=== PATIENT | male | born 1930 | race Caucasian/White ===

== ENCOUNTER 2020-05-03 16:40 | Inpatient (IN) | payer MEDICARE ==
[~2020-05-03] VITALS: Ht 177.8 cm; Wt 76.5 kg
[~2020-05-03 16:40] MED LIST: AMOX1TAB64 PO; ERYT30GE2 EACHEYE; FINA5TAB4 PO; FLUC200T PO; HYDR-3237 PO; LATA2.5D4 EACHEYE; LISI-167 PO; METH4TAB2 PO; PANT40TA6 PO; PRAV40TA2 PO; TERA2CAP3 PO
--- NOTE | 2020-05-03 16:58 | NUR ---
PT LISHA. TRANSFER FROM [facility]. PER EMS PT WOKE UP AND WAS DIZZY SO HE PRESENTED TO [facility]. [facility] SAW 3RD DEGREE HEART BLOCK AND TRANSFERRED HIM TO [facility]. PER EMS PT GOT NO MEDICATIONS EN ROUTE AND ONLY SYMPTOM IS DIZZINESS. PT STATES HE IS NO LONGER DIZZY. CODE CART IN ROOM, PT ON PADS. EKG DONE. ALBERTO RAMIREZ AT BS. MONITORING IN PLACE, NADN AT THIS TIME. PT'S HR CURRENTLY 41BPM AND BP 152/53. WCTM. BILAT IV ACCESS IN FOREARMS 20G.
[2020-05-03] MEDS ORDERED: SODIUM CHLORIDE FLUSH 10ML SYR IVF ONE (17:00)
--- NOTE | 2020-05-03 17:18 | NUR ---
PT'S CALLED PER PT'S REQUEST. MIRIAM, PT'S , UPDATED ON POC. PHONE NUMBER [phone].
[2020-05-03 17:39] LABS: BASOPHILS % (AUTO) 0 % (0-1); EOSINOPHILS % (AUTO) 1 % (1-7); LYMPHOCYTES % (AUTO) 24 % (22-44); MEAN CORPUSCULAR HEMOGLOBIN 31.7 pg (27.5-34.5); MEAN CORPUSCULAR HGB CONC 33.8 g/dL (33.2-36.2); MEAN PLATELET VOLUME 7.6 fL (7.4-10.4); MONOCYTES % (AUTO) 9 % (2-9); NEUTROPHILS % (AUTO) 66 % (42-75); PLATELET COUNT 207 x10^3/uL (130-400); RED CELL DISTRIBUTION WIDTH 13.2 % (9.4-14.8)
[2020-05-03 17:43] LABS: ALANINE AMINOTRANSFERASE 23 U/L (12-78); ALBUMIN 3.5 g/dL (3.4-5.0); ANION GAP 4 mmol/L (5-15); CALCIUM 8.1 mg/dL (8.5-10.1); CHLORIDE 106 mmol/L (98-107); CREATININE 1.12 mg/dL (0.7-1.3)
[2020-05-03 17:47] LABS: ALKALINE PHOSPHATASE 64 U/L (45-117); BILIRUBIN,TOTAL 0.4 mg/dL (0.2-1.0); TOTAL PROTEIN 6.7 g/dL (6.4-8.2); TROPONIN I 0.019 ng/mL (0.000-0.045)
[2020-05-03 17:48] LABS: MD NO
[2020-05-03] MEDS ORDERED: ATOR20TA37 PO (17:49)
[2020-05-03] MEDS ORDERED: CARB1TAB22 PO (17:49)
[2020-05-03] MEDS ORDERED: TAMS-11 PO (17:49)
[2020-05-03 18:41] LABS: INTERNATIONAL NORMALIZED RATIO 1.13 (0.93-1.1)
[2020-05-03] MEDS ORDERED: ONDANSETRON 2MG/ML, 2ML IVPush PRN (19:00)
[2020-05-03] MEDS ORDERED: ENALAPRILAT 1.25 MG/ML, 2ML IVPush PRN (19:00)
[2020-05-03] MEDS ORDERED: ACETAMINOPHEN 325 MG TABLET PO PRN (19:00)
--- NOTE | 2020-05-03 20:05 | NUR ---
Dinner tray provided. Pt tolerating well. Pt stood at bedside and used urinal, tolerated well. Pt denies lighthead or dizziness. Remains in a 3degree heart block, umair PWD. A&O.
[2020-05-03] MEDS ORDERED: [UNRECOGNIZED DRUG - REMARK] XX ONE (20:30)
[2020-05-04 04:49] LABS: BASOPHILS % (AUTO) 0 % (0-1); EOSINOPHILS % (AUTO) 2 % (1-7); LYMPHOCYTES % (AUTO) 31 % (22-44); MEAN CORPUSCULAR HEMOGLOBIN 31.6 pg (27.5-34.5); MEAN CORPUSCULAR HGB CONC 33.8 g/dL (33.2-36.2); MEAN PLATELET VOLUME 7.8 fL (7.4-10.4); MONOCYTES % (AUTO) 10 % (2-9); NEUTROPHILS % (AUTO) 57 % (42-75); PLATELET COUNT 202 x10^3/uL (130-400); RED BLOOD COUNT 4.14 x10^6/uL (4.38-5.82); RED CELL DISTRIBUTION WIDTH 13.2 % (9.4-14.8)
[2020-05-04 04:53] LABS: MD NO
[2020-05-04 04:59] LABS: ANION GAP 5 mmol/L (5-15); CALCIUM 8.4 mg/dL (8.5-10.1); CHLORIDE 108 mmol/L (98-107)
[2020-05-04 05:01] LABS: CREATININE 1.15 mg/dL (0.7-1.3)
[2020-05-04] MEDS: SODIUM CHLORIDE 0.9% 1,000 ML IV SCH ×2 (08:30→16:34)
[2020-05-04] MEDS ORDERED: hydrALAzine 20 MG/ML, 1ML IV PRN (08:30)
[2020-05-04] MEDS ORDERED: CEFAZOLIN PMX 1GM/50ML 50 ML IVPB ONE (08:30)
[2020-05-04 09:08] LABS: CHOL/HDL RATIO 1.7; LDL/HDL RATIO 0.5 (0.5-3.0)
[2020-05-04] MEDS ORDERED: MIDAZOLAM 1 MG/ML, 5ML ONE (09:41)
[2020-05-04] MEDS ORDERED: CEFAZOLIN PMX 1GM/50ML 50 ML ONE (09:41)
[2020-05-04] MEDS ORDERED: FENTANYL PF 100 MCG/2ML ONE (09:41)
[2020-05-04] MEDS ORDERED: CEFAZOLIN 1,000 MG ONE (09:41)
[2020-05-04] MEDS ORDERED: HOLD MEDICATION MC PRN (11:00)
[2020-05-04] MEDS ORDERED: HYDROcodone/APAP 5/325 TABLET PO PRN (11:00)
[2020-05-04] MEDS: FINASTERIDE 5 MG TABLET PO SCH (12:00)
[2020-05-04] MEDS: PANTOPRAZOLE 40MG TABLET PO SCH (12:00)
[2020-05-04] MEDS: CARBIDOPA/LEVODOPA 25 MG/100 MG TABLET PO SCH ×2 (12:00→16:33)
[2020-05-04] MEDS: TAMSULOSIN 0.4 MG CAP.ER.24H PO SCH (12:01)
[2020-05-04 15:43] VITALS: BP 134/72
[2020-05-04] MEDS ORDERED: CEFAZOLIN PMX 1GM/50ML 50 ML IVPB SCH (18:00)
[2020-05-04] MEDS: CEFAZOLIN PMX 1GM/50ML 50 ML IVPB SCH (19:04)
[2020-05-04 19:48] VITALS: BP 146/76
[2020-05-04] MEDS: SODIUM CHLORIDE FLUSH 10ML SYR IVF SCH (20:29)
[2020-05-04] MEDS ORDERED: LATANOPROST OPHTH 0.005%, 2.5ML EACHEYE SCH (21:00)
[2020-05-04] MEDS ORDERED: ATORVASTATIN 40 MG TABLET PO SCH (21:00)
[2020-05-05] MEDS: SODIUM CHLORIDE 0.9% 1,000 ML IV SCH (00:30)
[2020-05-05] MEDS: CARBIDOPA/LEVODOPA 25 MG/100 MG TABLET PO SCH ×2 (00:50→09:37)
[2020-05-05 01:33] VITALS: BP 156/71
[2020-05-05] MEDS: CEFAZOLIN PMX 1GM/50ML 50 ML IVPB SCH (03:13)
[2020-05-05 06:05] LABS: ANION GAP 4 mmol/L (5-15); CHLORIDE 112 mmol/L (98-107); CREATININE 0.92 mg/dL (0.7-1.3)
[2020-05-05 06:19] LABS: BASOPHILS % (AUTO) 0 % (0-1); EOSINOPHILS % (AUTO) 1 % (1-7); LYMPHOCYTES % (AUTO) 14 % (22-44); MEAN CORPUSCULAR HEMOGLOBIN 31.6 pg (27.5-34.5); MEAN CORPUSCULAR HGB CONC 33.9 g/dL (33.2-36.2); MEAN PLATELET VOLUME 7.8 fL (7.4-10.4); MONOCYTES % (AUTO) 9 % (2-9); NEUTROPHILS % (AUTO) 76 % (42-75); PLATELET COUNT 183 x10^3/uL (130-400); RED BLOOD COUNT 4.18 x10^6/uL (4.38-5.82); RED CELL DISTRIBUTION WIDTH 13.1 % (9.4-14.8)
[2020-05-05 06:37] LABS: MD NO
[2020-05-05 08:04] VITALS: BP 179/85
[2020-05-05] MEDS ORDERED: ENOXAPARIN 40 MG/0.4 ML SQ SCH (08:30)
[2020-05-05] MEDS ORDERED: ACETAMINOPHEN 325 MG TABLET PO PRN (08:30)
[2020-05-05] MEDS ORDERED: SODIUM CHLORIDE 0.9% 1,000 ML IV SCH (08:30)
[2020-05-05] MEDS ORDERED: LACTOBACILLUS CHEW TABLET PO SCH (09:00)
[2020-05-05] MEDS ORDERED: AMLO2.5T5 PO (09:23)
[2020-05-05] MEDS ORDERED: ACID1TAB7 PO (09:23)
[2020-05-05] MEDS ORDERED: SENN-211 PO (09:29)
[2020-05-05] MEDS ORDERED: AMLODIPINE 2.5 MG TABLET PO SCH (09:30)
[2020-05-05] MEDS: SODIUM CHLORIDE FLUSH 10ML SYR IVF SCH (09:36)
[2020-05-05] MEDS ORDERED: ACET325T26 PO (09:36)
[2020-05-05] MEDS: PANTOPRAZOLE 40MG TABLET PO SCH (09:37)
[2020-05-05] MEDS: FINASTERIDE 5 MG TABLET PO SCH (09:37)
[2020-05-05] MEDS: TAMSULOSIN 0.4 MG CAP.ER.24H PO SCH (09:37)
== END 2020-05-05 14:14 | disposition home or self-care (01) | DRG 243 ==
LOC: ED 18:16 → EDIP 18:22 → CCU 20:37 → 5SO 05-04 17:00
PROVIDERS: ADMIT Internal Medicine; ATTEND Internal Medicine
PROC: 0JH606Z Insertion of Pacemaker, Dual Chamber into Chest Subcutaneous Tissue and Fascia, Open Approach (ICD-10-PCS; principal; 2020-05-04)
PROC: 02H63JZ Insertion of Pacemaker Lead into Right Atrium, Percutaneous Approach (ICD-10-PCS; 2020-05-04)
PROC: 02HK3JZ Insertion of Pacemaker Lead into Right Ventricle, Percutaneous Approach (ICD-10-PCS; 2020-05-04)
DX: I44.2 Atrioventricular block, complete (principal); E87.1 Hypo-osmolality and hyponatremia; I50.30 Unspecified diastolic (congestive) heart failure; R00.1 Bradycardia, unspecified; E11.9 Type 2 diabetes mellitus without complications; E78.5 Hyperlipidemia, unspecified; K21.9 Gastro-esophageal reflux disease without esophagitis; G20 Parkinson's disease; N40.0 Benign prostatic hyperplasia without lower urinary tract symptoms; K59.09 Other constipation; I35.0 Nonrheumatic aortic (valve) stenosis; I27.20 Pulmonary hypertension, unspecified; I11.0 Hypertensive heart disease with heart failure; Z96.652 Presence of left artificial knee joint; Z82.49 Family history of ischemic heart disease and other diseases of the circulatory system; Z88.8 Allergy status to other drugs, medicaments and biological substances; Z79.899 Other long term (current) drug therapy
CPT/HCPCS: 33208; 36415; 71045; 80048; 80053; 80061; 84443; 84484; 85025; 85610; 85730; 87081; 93005; 99156; 99157; 99291; C1779; C1785; C1892; C8929; G0378; J0690; J1650; J2250; J3010; Q9957; J7030

== ENCOUNTER 2020-08-02 09:03 | Day surgery (SDC) | payer MEDICARE ==
[~2020-08-02] VITALS: Ht 175.3 cm; Wt 71.6 kg
[~2020-08-02 09:03] MED LIST changes: +ACET325T26 PO; +ACID1TAB7 PO; +AMLO2.5T5 PO; +ATOR20TA37 PO; +CARB1TAB22 PO; +SENN-211 PO; +TAMS-11 PO
[2020-08-02] MEDS ORDERED: BIVALIRUDIN 250 MG ONE (09:31)
[2020-08-02] MEDS ORDERED: FENTANYL PF 100 MCG/2ML ONE (09:31)
[2020-08-02] MEDS ORDERED: MIDAZOLAM 1 MG/ML, 5ML ONE (09:31)
[2020-08-02] MEDS ORDERED: VERAPAMIL 2.5 MG/ML, 2ML ONE (09:31)
[2020-08-02] MEDS ORDERED: TICAGRELOR 90 MG TABLET ONE (09:31)
[2020-08-02] MEDS ORDERED: HEPARIN 1,000 UNITS/ML, 10ML ONE (09:32)
[2020-08-02] MEDS ORDERED: LIDOCAINE-MPF 1%, 5ML ONE (09:32)
[2020-08-02] MEDS ORDERED: MELA3CAP2 PO (09:47)
[2020-08-02] MEDS ORDERED: ASPI81TA45 PO (09:47)
[2020-08-02 10:04] VITALS: BP 131/65
[2020-08-02] MEDS ORDERED: BIOTIN (10:14)
[2020-08-02] MEDS ORDERED: AREDS (10:14)
[2020-08-02 10:17] LABS: BASOPHILS % (AUTO) 0 % (0-1); EOSINOPHILS % (AUTO) 1 % (1-7); LYMPHOCYTES % (AUTO) 31 % (22-44); MD NO; MEAN CORPUSCULAR HGB CONC 33.4 g/dL (33.2-36.2); MEAN PLATELET VOLUME 7.4 fL (7.4-10.4); MONOCYTES % (AUTO) 10 % (2-9); NEUTROPHILS % (AUTO) 57 % (42-75); PLATELET COUNT 163 x10^3/uL (130-400); RED BLOOD COUNT 4.33 x10^6/uL (4.38-5.82); RED CELL DISTRIBUTION WIDTH 13.3 % (9.4-14.8)
[2020-08-02] MEDS ORDERED: ASCO100018 PO (10:18)
[2020-08-02] MEDS ORDERED: VITAMIN D (10:18)
[2020-08-02 10:22] LABS: ANION GAP 5 mmol/L (5-15); CALCIUM 8.8 mg/dL (8.5-10.1); CHLORIDE 105 mmol/L (98-107); CREATININE 0.92 mg/dL (0.7-1.3)
== END 2020-08-02 14:18 | disposition home or self-care (01) ==
LOC: CACL 09:03
PROVIDERS: ATTEND Internal Medicine Cardiovascular Disease
DX: I35.0 Nonrheumatic aortic (valve) stenosis (principal); I11.0 Hypertensive heart disease with heart failure; I50.33 Acute on chronic diastolic (congestive) heart failure; E78.5 Hyperlipidemia, unspecified; Z79.899 Other long term (current) drug therapy; Z88.8 Allergy status to other drugs, medicaments and biological substances; Z95.0 Presence of cardiac pacemaker; Z79.82 Long term (current) use of aspirin
CPT/HCPCS: 36415; 80048; 85025; 93454; 99156; C1769; C1894; J1644; J2250; J3010; Q9967; J0583

== ENCOUNTER → 2020-08-07 | Outpatient (CLI) | payer MEDICARE ==
[~2020-08-07] MED LIST changes: +AREDS; +ASCO100018 PO; +ASPI81TA45 PO; +BIOTIN; +MELA3CAP2 PO; +VISIPAQUE 320 MG/ML, 150ML BOTTLE ONE; +VITAMIN D
== END | disposition home or self-care (01) ==
LOC: CVU 11:17
PROVIDERS: ATTEND Internal Medicine Cardiovascular Disease
DX: I65.23 Occlusion and stenosis of bilateral carotid arteries (principal); I35.0 Nonrheumatic aortic (valve) stenosis; I45.5 Other specified heart block; I50.33 Acute on chronic diastolic (congestive) heart failure; N32.89 Other specified disorders of bladder; M48.04 Spinal stenosis, thoracic region; M48.54XA Collapsed vertebra, not elsewhere classified, thoracic region, initial encounter for fracture; I44.2 Atrioventricular block, complete; I11.0 Hypertensive heart disease with heart failure; Z95.0 Presence of cardiac pacemaker; Z95.4 Presence of other heart-valve replacement
CPT/HCPCS: 71275; 74174; 93880; Q9967

== ENCOUNTER 2020-08-20 07:43 | Inpatient (IN) | payer MEDICARE ==
[~2020-08-20] VITALS: Ht 175.3 cm; Wt 78.5 kg
[~2020-08-20 07:43] MED LIST changes: -LATA2.5D4 EACHEYE; +LATA2.5D4 LEFTEYE; -VISIPAQUE 320 MG/ML, 150ML BOTTLE ONE
[2020-08-27] MEDS ORDERED: ONDANSETRON 2MG/ML, 2ML IV PRN (09:00)
[2020-08-27] MEDS ORDERED: SODIUM CHLORIDE 0.9% 1,000 ML IV ONE (09:00)
[2020-08-27 09:21] LABS: BASOPHILS % (AUTO) 1 % (0-1); EOSINOPHILS % (AUTO) 2 % (1-7); LYMPHOCYTES % (AUTO) 35 % (22-44); MEAN CORPUSCULAR HEMOGLOBIN 31.1 pg (27.5-34.5); MEAN CORPUSCULAR HGB CONC 33.2 g/dL (33.2-36.2); MEAN PLATELET VOLUME 7.3 fL (7.4-10.4); MONOCYTES % (AUTO) 12 % (2-9); NEUTROPHILS % (AUTO) 50 % (42-75); PLATELET COUNT 165 x10^3/uL (130-400); RED BLOOD COUNT 4.28 x10^6/uL (4.38-5.82); RED CELL DISTRIBUTION WIDTH 13.4 % (9.4-14.8)
[2020-08-27 09:22] LABS: MD NO
[2020-08-27] MEDS ORDERED: VIT1TABL34 PO (09:26)
[2020-08-27] MEDS ORDERED: MULT-826 PO (09:26)
[2020-08-27] MEDS ORDERED: CYAN100T22 PO (09:26)
[2020-08-27] MEDS ORDERED: POLY17PO5 PO (09:26)
[2020-08-27] MEDS ORDERED: FINA5TAB4 PO (09:26)
[2020-08-27] MEDS ORDERED: CHOL10003 PO (09:26)
[2020-08-27] MEDS ORDERED: FOLI0.8T5 PO (09:26)
[2020-08-27] MEDS ORDERED: Biotin PO (09:26)
[2020-08-27] MEDS ORDERED: ASCO500T8 PO (09:26)
[2020-08-27 09:32] LABS: ALANINE AMINOTRANSFERASE 22 U/L (12-78); ALBUMIN 3.8 g/dL (3.4-5.0); ANION GAP 6 mmol/L (5-15); CALCIUM 8.5 mg/dL (8.5-10.1); CHLORIDE 108 mmol/L (98-107)
[2020-08-27 09:33] LABS: INTERNATIONAL NORMALIZED RATIO 1.15 (0.93-1.1); PROTHROMBIN TIME 12.3 Seconds (9.6-11.5)
[2020-08-27 09:35] LABS: ALKALINE PHOSPHATASE 63 U/L (45-117); BILIRUBIN,TOTAL 0.5 mg/dL (0.2-1.0); CREATININE 0.84 mg/dL (0.7-1.3); TOTAL PROTEIN 7.1 g/dL (6.4-8.2)
[2020-08-27 09:39] VITALS: BP 116/62
[2020-08-27] MEDS ORDERED: FENTANYL PF 250 MCG/5ML ONE (13:10)
[2020-08-27] MEDS ORDERED: CEFAZOLIN 1,000 MG ONE ×2 (13:10→13:11)
[2020-08-27] MEDS ORDERED: DEXAMETHASONE 4 MG/ML, 1ML ONE ×2 (13:10→13:11)
[2020-08-27] MEDS ORDERED: HEPARIN 1,000 UNITS/ML, 10ML ONE ×2 (13:11)
[2020-08-27] MEDS ORDERED: SUCCINYLCHOLINE 20 MG/ML, 10ML ONE (13:11)
[2020-08-27] MEDS ORDERED: PROPOFOL 10 MG/ML, 20ML ONE (13:11)
[2020-08-27] MEDS ORDERED: PHENYLEPHRINE 10 MG/ML ONE (13:11)
[2020-08-27] MEDS ORDERED: ROCURONIUM 10MG/ML,5ML ONE (13:11)
[2020-08-27] MEDS ORDERED: PROTAMINE SULFATE 10 MG/ML, 5ML ONE (13:11)
[2020-08-27] MEDS ORDERED: ACETAMINOPHEN 325 MG TABLET PO PRN (13:30)
[2020-08-27] MEDS ORDERED: ONDANSETRON 2MG/ML, 2ML ONE (14:02)
[2020-08-27 16:38] VITALS: BP 151/68
[2020-08-27 19:41] VITALS: BP 159/82
[2020-08-27] MEDS ORDERED: LATANOPROST OPHTH 0.005%, 2.5ML LEFTEYE SCH (21:00)
[2020-08-27] MEDS ORDERED: TAMSULOSIN 0.4 MG CAP.ER.24H PO SCH (21:00)
[2020-08-27] MEDS ORDERED: ATORVASTATIN 40 MG TABLET PO SCH (21:00)
[2020-08-27] MEDS ORDERED: MELATONIN 3 MG TABLET PO SCH (21:00)
[2020-08-28 01:00] VITALS: BP 133/71
[2020-08-28 07:05] VITALS: BP 165/72
[2020-08-28] MEDS ORDERED: FINASTERIDE 5 MG TABLET PO SCH (09:00)
[2020-08-28] MEDS ORDERED: TAMSULOSIN 0.4 MG CAP.ER.24H PO ONE (09:00)
[2020-08-28 14:56] VITALS: BP 130/64
[2020-08-28 17:11] LABS: ANION GAP 5 mmol/L (5-15); CALCIUM 8.7 mg/dL (8.5-10.1); CHLORIDE 109 mmol/L (98-107); CREATININE 0.84 mg/dL (0.7-1.3)
[2020-08-28 17:16] LABS: BASOPHILS % (AUTO) 0 % (0-1); EOSINOPHILS % (AUTO) 1 % (1-7); LYMPHOCYTES % (AUTO) 20 % (22-44); MEAN CORPUSCULAR HEMOGLOBIN 31.6 pg (27.5-34.5); MEAN CORPUSCULAR HGB CONC 33.8 g/dL (33.2-36.2); MEAN PLATELET VOLUME 7.4 fL (7.4-10.4); MONOCYTES % (AUTO) 12 % (2-9); NEUTROPHILS % (AUTO) 67 % (42-75); PLATELET COUNT 147 x10^3/uL (130-400); RED BLOOD COUNT 3.96 x10^6/uL (4.38-5.82)
[2020-08-28 17:18] LABS: MD NO
[2020-08-29] MEDS ORDERED: ASPIRIN 81 MG TABLET EC PO SCH (09:00)
== END 2020-08-28 19:15 | disposition home health service (06) | DRG 266 ==
LOC: ORIP 08-27 08:09 → 5SO 08-27 15:58
PROVIDERS: ADMIT Internal Medicine Cardiovascular Disease; ATTEND Internal Medicine Cardiovascular Disease
PROC: B3101ZZ Fluoroscopy of Thoracic Aorta using Low Osmolar Contrast (ICD-10-PCS; 2020-08-27)
PROC: B24BZZ4 Ultrasonography of Heart with Aorta, Transesophageal (ICD-10-PCS; 2020-08-27)
PROC: 02RF38Z Replacement of Aortic Valve with Zooplastic Tissue, Percutaneous Approach (ICD-10-PCS; principal; 2020-08-27 13:00)
DX: I35.0 Nonrheumatic aortic (valve) stenosis (principal); Z00.6 Encounter for examination for normal comparison and control in clinical research program; I50.33 Acute on chronic diastolic (congestive) heart failure; F02.80 Dementia in other diseases classified elsewhere, unspecified severity, without behavioral disturbance, psychotic disturbance, mood disturbance, and anxiety; G20 Parkinson's disease; N40.1 Benign prostatic hyperplasia with lower urinary tract symptoms; R33.8 Other retention of urine; Z95.0 Presence of cardiac pacemaker; Z20.822 Contact with and (suspected) exposure to COVID-19; Z88.8 Allergy status to other drugs, medicaments and biological substances
CPT/HCPCS: 33361; 36415; 76937; 80048; 80053; 85025; 85610; 86850; 86900; 86923; 87635; 93005; 93306; 93312; 93321; 93325; 93355; C1760; C1769; C1894; G0378; J0690; J1100; J1644; J2405; J2704; J2720; J3010; J0330; J2370; Q9967

== ENCOUNTER → 2020-10-02 | Outpatient (CLI) | payer MEDICARE ==
[~2020-10-02] MED LIST changes: +ASCO500T8 PO; +Biotin PO; +CHOL10003 PO; +CYAN100T22 PO; +FOLI0.8T5 PO; +MULT-826 PO; +POLY17PO5 PO; +VIT1TABL34 PO
== END | disposition home or self-care (01) ==
LOC: CVU 12:22
PROVIDERS: ATTEND Internal Medicine Cardiovascular Disease
DX: Z01.810 Encounter for preprocedural cardiovascular examination (principal); I08.1 Rheumatic disorders of both mitral and tricuspid valves; R06.02 Shortness of breath; I65.29 Occlusion and stenosis of unspecified carotid artery
CPT/HCPCS: 93306